=== PATIENT | female | born 1970 | race Caucasian/White ===

== ENCOUNTER → 2016-11-19 | Outpatient (CLI) | payer OTHER ==
[~2016-11-19] MED LIST: DICL1GEL12; DIPH25CA65 PO; DOCU-94 PO; GABA-113 PO; HYDR-4383 PO; MELO7.5T5 PO; NRN600 PO; OXYC-106 PO; RANI150T3 PO; WARF2TAB PO; compound cream TOP
== END | disposition home or self-care (01) ==
LOC: C.RDSM 13:21
PROVIDERS: ATTEND Physical Medicine & Rehabilitation Sports Medicine
DX: M25.551 Pain in right hip (principal)

== ENCOUNTER → 2016-12-31 | Outpatient (CLI) | payer OTHER ==
--- NOTE | 2016-12-31 11:51 | DIAGNOSTIC IMAGING REPORT ---
MRI LUMBAR SPINE W/O CONTRAST CLINICAL HISTORY: LUMBAR NEURITIS TECHNIQUE: Sagittal and axial T1, T2 and STIR images were obtained. COMPARISON STUDY: None OBSERVATIONS: The vertebral bodies and posterior elements appear intact. There is no abnormal bony signal present to suggest a marrow replacement process. L1-2: No disc protrusions or extrusions. No evidence of spinal canal or neural foraminal compromise. L2-3: No disc protrusions or extrusions. No evidence of spinal canal or neural foraminal compromise. L3-4: No disc protrusions or extrusions. No evidence of spinal canal or neural foraminal compromise. L4-5: There is an annular fissure and tiny broad-based central disc protrusion. This is of doubtful clinical significance. There is no significant spinal or foraminal stenosis. L5-S1: No disc protrusions or extrusions. No evidence of spinal canal or neural foraminal compromise. The conus medullaris and cauda equina appear normal. IMPRESSION: Small annular fissure and tiny broad-based central disc protrusion at the L4-5 level. No evidence of spinal or foraminal stenosis. Electronically signed by: Magdiel Arevalo M.D. 12/31/2016 11:50 AM Dictated Date/Time: 12/31/2016 11:41 AM
== END | disposition home or self-care (01) ==
LOC: C.MRIBC 10:33
PROVIDERS: ATTEND Physical Medicine & Rehabilitation Sports Medicine
DX: M51.26 Other intervertebral disc displacement, lumbar region (principal); M76.11 Psoas tendinitis, right hip

== ENCOUNTER → 2017-02-25 | Outpatient (CLI) | payer OTHER ==
[~2017-02-25] MED LIST changes: -NRN600 PO; -WARF2TAB PO
--- NOTE | 2017-02-25 12:38 | DIAGNOSTIC IMAGING REPORT ---
RIGHT LOWER QUADRANT/INGUINAL ULTRASOUND CLINICAL HISTORY: R GROIN PAIN COMPARISON STUDY: No previous studies for comparison. FINDINGS: Ultrasonographic evaluation the right right lower quadrant/inguinal region reveals no pathologic masses and no evidence of hernia. IMPRESSION: No ultrasonographic abnormalities identified. Electronically signed by: Magdiel Arevalo M.D. 02/25/2017 12:36 PM Dictated Date/Time: 02/25/2017 12:35 PM
== END | disposition home or self-care (01) ==
LOC: C.ULTRBC 11:51
PROVIDERS: ATTEND Physical Medicine & Rehabilitation Sports Medicine
DX: G57.11 Meralgia paresthetica, right lower limb (principal); M16.11 Unilateral primary osteoarthritis, right hip

== ENCOUNTER → 2017-05-20 | Outpatient (CLI) | payer OTHER ==
[~2017-05-20] MED LIST changes: -HYDR-4383 PO
== END | disposition home or self-care (01) ==
LOC: C.RDSM 11:37
PROVIDERS: ATTEND Physical Medicine & Rehabilitation Sports Medicine
DX: M16.11 Unilateral primary osteoarthritis, right hip (principal); Z96.649 Presence of unspecified artificial hip joint

== ENCOUNTER → 2018-01-23 | Outpatient (CLI) | payer OTHER | END | disposition home or self-care (01) | LOC: C.RDSM 13:41 | PROVIDERS: ATTEND Physical Medicine & Rehabilitation Sports Medicine | DX: Z96.641 Presence of right artificial hip joint (principal) ==